=== PATIENT | male | born 1965 | race Caucasian/White ===

== ENCOUNTER 2021-01-18 07:46 | Emergency (ER) | payer SELFPAY ==
[2021-01-18 07:58] VITALS: BP 117/80; PULSE 60; TEMP 98.2; BMI 25.0
[2021-01-18] MEDS ORDERED: KETOROLAC TROMETHAMINE 60 MG/2 ML VIAL IM ONE (10:00)
[2021-01-18] MEDS ORDERED: KETOROLAC TROMETHAMINE 30 MG/1 ML VIAL ONE (10:08)
== END 2021-01-18 13:17 | disposition home or self-care (01) ==
LOC: JERFT 07:46
PROC: 3E0233Z Introduction of Anti-inflammatory into Muscle, Percutaneous Approach (ICD-10-PCS; principal; 2021-01-18)
DX: S40.021A Contusion of right upper arm, initial encounter (principal)
CPT/HCPCS: 73060-TC-RT-FY; 99284-25